=== PATIENT | female | born 1955 | race Caucasian/White ===

== ENCOUNTER 2018-05-05 19:39 | Emergency (ER) | payer OTHER, SELFPAY ==
[2018-05-05] MEDS ORDERED: NA CHLORIDE 0.9% 1,000 ML ONE (20:04)
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
[2018-05-05] MEDS ORDERED: KETOROLAC 30 MG/ML INJ ONE (21:30)
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
[2018-05-05 22:17] LABS: Urine Blood NEGATIVE (NEG); Urine Glucose NEGATIVE (NEG); Urine Protein NEGATIVE (NEG); Urine Specific Gravity 1.015 (1.005-1.030)
== END 2018-05-05 22:10 | disposition home or self-care (01) ==
LOC: ER 19:39
DX: S19.9XXA Unspecified injury of neck, initial encounter (principal); S39.92XA Unspecified injury of lower back, initial encounter; V49.49XA Driver injured in collision with other motor vehicles in traffic accident, initial encounter; Z88.0 Allergy status to penicillin; E03.9 Hypothyroidism, unspecified
CPT/HCPCS: 36415; 70450; 71260; 72125; 74177; 81003; 96361; 96374; 99284; J7030; Q9967